=== PATIENT | female | born 1945 | race Caucasian/White ===

== ENCOUNTER 2019-01-10 05:08 | Day surgery (SDC) | payer MEDICARE, BC ==
[~2019-01-10] VITALS: Ht 167.6 cm; Wt 54.4 kg
[2019-01-10 06:00] VITALS: BP 125/70
[2019-01-10] MEDS ORDERED: CELECOXIB 100 MG CAPSULE PO ONE (06:30)
[2019-01-10] MEDS ORDERED: GABAPENTIN 300 MG CAPSULE PO ONE (06:30)
[2019-01-10] MEDS ORDERED: ACETAMINOPHEN 325 MG TABLET PO ONE (06:30)
[2019-01-10] MEDS ORDERED: KETOROLAC TROMETHAMINE INJ 30 MG/ML VIAL IV ONE (06:30)
[2019-01-10] MEDS ORDERED: oxyCODONE HCL SR 20MG TAB.SR.12H PO ONE (06:30)
--- NOTE | 2019-01-10 06:30 | NUR ---
DAY SURGERY PT ARRIVED TO UNIT FOR DAY SURGERY. IV STARTED TO RAC #20, FLUSHES WELL, GOOD BLOOD RETURN NOTED. CONSENTS SIGNED, CHECKLIST COMPLETED. BELONGINGS LIST COMPLETED. ORIENTED PT TO ROOM AND CALL LIGHT. BED IN LOW/LOCKED POSITION WITH CALL LIGHT IN REACH. BILAT. UPPER SIDE RAILS IN PLACE. SITTING UP IN BED. WILL CONTINUE TO PREPARE FOR BRANCH OPERATIONS MANAGER BY SURGICAL STAFF
[2019-01-10] MEDS ORDERED: MIDAZOLAM HCL 2 MG/2ML VIAL ONE ×2 (06:44→07:37)
[2019-01-10] MEDS ORDERED: FENTANYL PF 250MCG/5ML AMPUL ONE (06:44)
[2019-01-10] MEDS ORDERED: SUCCINYLCHOLINE CHLORIDE 20 MG/ML VIAL ONE (06:45)
[2019-01-10] MEDS ORDERED: FAMOTIDINE/PF INJ 20 MG/2 ML VIAL IV ONE (06:45)
[2019-01-10 07:01] VITALS: BP 125/70
[2019-01-10] MEDS ORDERED: CEFAZOLIN 1 GM ONE (07:03)
[2019-01-10] MEDS ORDERED: LIDOCAINE HCL/PF 1% 30 ML SDV ONE (07:03)
[2019-01-10] MEDS ORDERED: METHYLENE BLUE 10 ML VIAL ONE (07:03)
[2019-01-10] MEDS ORDERED: HEMOSTATIC MATRIX 10 ML 1 EACH PAD MC ONE (07:03)
[2019-01-10] MEDS ORDERED: methylPREDNISolone ACETATE 80 MG/ML VIAL ONE (07:03)
--- NOTE | 2019-01-10 07:10 | NUR ---
PT WENT DOWN FOR SURGERY IN STABLE CONDITION
--- NOTE | 2019-01-10 07:10 | NUR ---
MS RN AM NOTES PT IN BED AT LOWEST AND LOCKED POSITION WITH SIDE RAILS UP X2, A/O X4 [place] SPEAKING, BREATHING EVEN AND UNLABORED ON RA WITH NO S/S OF ANY DISTRESS NOTED AT THIS TIME, IV H/L IS PATENT AND INTACT, ON NPO DUE TO MICRODISCECTOMY OF LEFT L4-L5 BY DR MCKEON TODAY.PT WENT TO O.R. AT 0710 WITH STABLE V/S.SAFETY PRECAUTIONS IN PLACE, WILL MONITOR ACCORDINGLY
--- NOTE | 2019-01-10 10:41 | NUR ---
PT CAME BACK FROM O.R. S/P MICRODISCECTOMY OF LEFT L4-L5 BY DR MCKEON WITH STABLE V/S.PT ALERT AND ORIENTED X4.VERBALLY RESPONSIVE.NO SOB ON ROOM AIR.DENIES ANY PAIN OR DISTRESS.FOR PT EVAL WITH WBAT.FOR F/U WITH DR MCKEON IN 2 WEEKS. WILL MONITOR.CALL LIGHT PLACED WITHIN REACH.
[2019-01-10 11:04] VITALS: BP 122/76
[2019-01-10] MEDS ORDERED: HYDROMORPHONE 1 MG/1 ML DISP.SYRIN IV PRN (14:00)
[2019-01-10] MEDS ORDERED: oxyCODONE/APAP (5/325 MG) 1 UDTAB TABLET PO PRN (14:00)
--- NOTE | 2019-01-10 15:30 | NUR ---
PT WAS DISCHARGED AT THIS TIME IN MEDICALLY STABLE CONDITION, VS WNL. IV AND ID BAND WERE REMOVED. ALL EXITCARE AND DISCHARGE PAPERWORK WAS DISCUSSED WITH THE PATIENT AND SIGNED. WAS INFORMED TO FOLLOW UP WITH DR. MCKEON IN 2 WEEKS, ALL NEEDS WERE ATTENDED TO DURING HER STAY, WAS TAKEN DOWN BY WHEELCHAIR BY DANUTA LEMA WHERE SHE LEFT WITH HER SISTER AT THIS TIME.
== END 2019-01-10 15:30 | disposition home or self-care (01) ==
LOC: DS 05:08 → MEDSG2 05:52 → UNDOADMIN 05:52 → MEDSG2 05:57 → UNDODISIN 15:30 → DS 15:30
PROVIDERS: ATTEND Specialist
DX: M51.16 Intervertebral disc disorders with radiculopathy, lumbar region (principal); F32.9 Major depressive disorder, single episode, unspecified; Z79.899 Other long term (current) drug therapy; Z98.890 Other specified postprocedural states; Z82.49 Family history of ischemic heart disease and other diseases of the circulatory system
CPT/HCPCS: 63030; 72020; 82962; 87081; 97116; 97161; 97530; A6209; A6402 ×2; J0330 ×2; J0690 ×2; J1040; J1100; J1885; J2250 ×2; J2405; J2704; J2765; J3010; J3490 ×2; Q9968; G0378